=== PATIENT | female | born 1985 | race Caucasian/White ===

== ENCOUNTER 2017-09-17 07:01 | Inpatient (IN) | payer BC ==
[2017-09-17] MEDS ORDERED: Nalbuphine 20 MG/1 ML Amp IVPUSH PRN (07:44)
[2017-09-17] MEDS ORDERED: Lidocaine 1% 50 ML MDV INJECT ONE (07:44)
[2017-09-17] MEDS ORDERED: Sodium Chloride 0.9% 10 ML Syringe FLUSH PRN (07:44)
[2017-09-17] MEDS ORDERED: Ondansetron 4 MG/2 ML SDV IVPUSH PRN ×2 (07:44→11:21)
[2017-09-17] MEDS ORDERED: Oxytocin/Lactated Ringers 10 UNIT/1,000 ML BAG IV SCH ×2 (07:45)
--- NOTE | 2017-09-17 08:18 | PCM.SN ---
- Free Text/Narrative Note: Patient is a 32-yo female who presents for a planned induction of labor at 39 1/7 weeks on 09/17/17. She has been having contractions during the night for the past 2 nights. She lost her mucous plug on 09/14/17 and had bloody show. She denies any leakage of fluid. On her cervix was 3+, 90%, very soft , mid, and -2 station. She measured 37+. Baby is active. The patient desires to have the cord blood saved in the stem cell kit she brought. She has no specific concerns. She is comfortable. She has been induced with her previous children and delivered vaginally with each. She hopes not to receive Pitocin, because it gives her headaches. Medications: tablets Allergies: Ciprofloxacin- delirium Sulfa- rash Pristiq- other PMH: Patient is UTD on immunizations. She has anxiety and manages without medication. She had breast augmentation in 2013. She had cryotherapy in 2010 for abnormal Pap results. FH: Denies FH of bleeding/clotting disorders or congenital heart disease. ROS: General: Denies fever, chills, or overall malaise Heart: Denies chest pain, tachycardia, or heart racing Lungs: Denies shortness of breath or difficulty breathing Abdominal: Denies nausea, vomiting, diarrhea, or constipation Vitals: Height: 5'5'' Weight: 144 BP: 108/70 Pulse: 64 Temp: 97.5 RR: 18 Exam: Conjunctiva are non-injected. Neck is non-tender. No lymphadenopathy. RRR. Breathing is non-labored. Lungs clear to auscultation. Edema 1+ bilaterally. Baby presents head down. Cervix is 3+, 90%, very soft, mid-position and -2 station. Assessment: 1. Planned induction of labor at 39 1/7 weeks 2. GBS negative 3. O+, not a candidate for Rhogam Plan: 1. Manually ruptured membranes at 08:30 2. CBC to obtain Hgb and platelet count 3. Patient desires an epidural per pain management 4. Expect 5. Patient desires that the cord blood be saved. She has brought the stem cell kit with instructions for storage. RN has called lab to clarify instructions. 6. Patient plans to breast-feed
[2017-09-17] MEDS: Lactated Ringers 1,000 ML IV SCH ×3 (10:54→12:46)
[2017-09-17] MEDS ORDERED: ePHEDrine 50 MG/ML SDV IVPUSH PRN (11:21)
[2017-09-17] MEDS ORDERED: fentaNYL 100 MCG/2 ML SDV EPIDUR PRN (11:21)
[2017-09-17] MEDS ORDERED: diphenhydrAMINE 50 MG/ML SDV IVPUSH PRN (11:21)
[2017-09-17] MEDS ORDERED: fentaNYL 100 MCG/2 ML SDV ONE (11:24)
[2017-09-17] MEDS ORDERED: Bupivacaine/fentaNYL/NS 100 ML Bag EPIDUR SCH (11:30)
--- NOTE | 2017-09-17 11:57 | PCM.PREANE ---
Preanesthetic Assessment - Anesthesia/Transfusion/Family Hx Anesthesia History: Prior Anesthesia Without Reaction Family History of Anesthesia Reaction: No Transfusion History: No Prior Transfusion(s) Intubation History: Unknown - Review of Systems General: No Symptoms Pulmonary: No Symptoms Cardiovascular: No Symptoms Gastrointestinal: Other (Heart Burn) Neurological: No Symptoms Other: Reports: None - Physical Assessment Pulse: 68 Respiratory Rate: 18 Vital Signs: Last Vital Signs Temp 36.4 C 09/17/17 07:15 Pulse 68 09/17/17 09:03 Resp 18 09/17/17 07:15 BP 108/70 09/17/17 07:15 Pulse Ox Height: 1.65 m Weight: 64.047 kg ASA Class: 2 Mental Status: Alert & Oriented x3 Airway Class: Mallampati = 2 Dentition: Reports: Normal Dentition Thyro-Mental Finger Breadths: 3 Mouth Opening Finger Breadths: 3 ROM/Head Extension: Full Lungs: Clear to Auscultation, Normal Respiratory Effort Cardiovascular: Regular Rate, Regular Rhythm - Lab Values: Laboratory Last Values WBC 7.89 K/mm3 (3.98-10.04) 09/17/17 08:24 RBC 3.85 M/mm3 (3.98-5.22) L 09/17/17 08:24 Hgb 11.8 gm/L (11.2-15.7) 09/17/17 08:24 Hct 34.6 % (34.1-44.9) 09/17/17 08:24 MCV 89.9 fl (79.4-94.8) 09/17/17 08:24 MCH 30.6 pg (25.6-32.2) 09/17/17 08:24 MCHC 34.1 g/dl (32.2-35.5) 09/17/17 08:24 RDW Std Deviation 40.9 fL (36.4-46.3) 09/17/17 08:24 Plt Count 175 K/mm3 (182-369) L 09/17/17 08:24 MPV 10.2 fl (9.4-12.3) 09/17/17 08:24 - Allergies Allergies/Adverse Reactions: Allergies Allergy/AdvReac Type Severity Reaction Status Date / Time ciprofloxacin HCl Allergy Hallucinati Verified 09/17/17 07:41 [From Cipro] ons Sulfa (Sulfonamide Allergy unsure Verified 09/17/17 07:41 Antibiotics) - Acknowledgements Anesthesia Type Planned: Epidural Pt an Appropriate Candidate for the Planned Anesthesia: Yes Alternatives and Risks of Anesthesia Discussed w Pt/Guardian: Yes Pt/Guardian Understands and Agrees with Anesthesia Plan: Yes PreAnesthesia Questionnaire - Past Health History Medical/Surgical History: Denies Medical/Surgical History DIRECTOR TRADING History: Reports: , Other (See Below) Other OB/BYN History: velamentous insertion of cord with current Neurological History: Reports: Headaches, Chronic, Migraines Psychiatric History: Reports: Anxiety - Past Surgical History HEENT Surgical History: Reports: Adenoidectomy, Other (See Below) Other HEENT Surgeries/Procedures: Ear tubes as a child Female Surgical History: Reports: Breast Implant - SUBSTANCE USE Smoking Status *Q: Former Smoker Tobacco Use Within Last Twelve Months: Cigarettes Recreational Drug Use History: No - HOME MEDS Home Medications: Home Meds Pediatric Multivit Comb No.136 [Children Multivitamin] 1 each PO DAILY 09/17/17 [History] - CURRENT (IN HOUSE) MEDS Current Meds: Current Medications Diphenhydramine HCl (Benadryl) 25 mg IVPUSH Q6H PRN PRN Reason: Pruritis Ephedrine Sulfate (Ephedrine Sulfate) 5 mg IVPUSH ASDIRECTED PRN PRN Reason: Hypotension Fentanyl (Sublimaze) 100 mcg EPIDUR ONETIME PRN PRN Reason: Pain Fentanyl/Bupivacaine HCl (Fentanyl/Bupivacaine/Ns 2 Mcg-0.125% 100 Ml) 100 ml EPIDUR ASDIRECTED [facility] Lactated Ringer's (Ringers, Lactated) 1,000 mls @ 100 mls/hr IV ASDIRECTED [facility] Last Admin: 09/17/17 10:54 Dose: 999 mls/hr Oxytocin/Lactated Ringer's (Pitocin In Lr 10 Units/1,000 Ml) 10 unit in 1,000 mls @ 500 mls/hr IV .CONTINUOUS [facility] Oxytocin/Lactated Ringer's (Pitocin In Lr 10 Units/1,000 Ml) 10 unit in 1,000 mls @ 12 mls/hr IV TITRATE [facility]; 2 MUNITS/MIN PRN Reason: Protocol Nalbuphine HCl (Nubain) 10 mg IVPUSH Q2H PRN PRN Reason: Pain (moderate 4-6) Ondansetron HCl (Zofran) 4 mg IVPUSH Q4H PRN PRN Reason: Nausea/Vomiting Ondansetron HCl (Zofran) 4 mg IVPUSH ONETIME PRN PRN Reason: Nausea/Vomiting Sodium Chloride (Saline Flush) 10 ml FLUSH ASDIRECTED PRN PRN Reason: Keep Vein Open Discontinued Medications Fentanyl (Sublimaze) Confirm Administered Dose 100 mcg .ROUTE .[place] ONE Stop: 09/17/17 11:25 Lidocaine HCl (Xylocaine 1%) 20 ml INJECT ONETIME ONE Stop: 09/17/17 07:45
[2017-09-17] MEDS ORDERED: Ibuprofen 600 MG Tab PO PRN (15:03)
[2017-09-17] MEDS ORDERED: Docusate Sodium 100 MG Cap PO PRN (18:00)
[2017-09-17] MEDS ORDERED: Benzocaine/Menthol 20%-0.5% Spray 56 GM Canister TOP PRN (18:00)
[2017-09-17] MEDS ORDERED: Lanolin 100% Cream 7 GM Tube TOP PRN (18:00)
--- NOTE | 2017-09-17 18:07 | PCM.SN ---
- Free Text/Narrative Note: Graeme is a 32 year old 4 para 4004 white female who admitted for elective induction of labor. She is 39-0/7 weeks at the time induction. Induction done for distance from the hospital and multiparous status. Artificial rupture membranes was undertaken and with this patient proceeded with labor. She progressed to complete cervical dilation within approximately 6 hours. She underwent epidural for analgesia. She delivered a viable, crabtree, female infant with Apgars of 8 and 9, a length of 19 inches and a weight of 3170 g (6 pounds 15.8 ounces) at 1414 hrs. on 09/17/2017. The baby was placed on mom's abdomen. Cord was clamped. Cord blood for cord blood and stem cell banking was obtained per patient request with a kit that she had brought from home. A piece of umbilical cord was also collected. It was placed in the kit for the patient to send. Maternal blood and been drawn earlier in the day by lab. Placenta delivered at 1424 hrs. It appeared intact. It had a marginal insertion , 3 vessels and appeared complete. It delivered in a Agustin presentation. No stitches were needed as the perineum was intact and no lacerations had occurred. Epidural was used for laboring analgesia. Estimated blood loss was 100 mL. Patient condition good. Nursing is planned.
[2017-09-17] MEDS ORDERED: Bupivacaine 0.25% 10 ML SDV ONE (22:22)
[2017-09-18] MEDS: Ibuprofen 600 MG Tab PO PRN ×2 (00:30→08:04)
[2017-09-18] MEDS ORDERED: Witch Hazel Medicated Pads 100/Jar TOP PRN (08:03)
[2017-09-18 08:06] VITALS: BP 116/76
[2017-09-18] MEDS ORDERED: Prenatal Multivitamin with Calcium/Folic Acid/Iron Tab PO SCH (09:00)
--- NOTE | 2017-09-18 11:32 | PCM.DCSUM1 ---
Discharge Summary - Hospital Course Free Text/Narrative:: Heber is a 32 year old 4 para 4004 white female who was admitted for elective induction of labor on 09/17/2017. She was 39-0/7 weeks at the time of induction. Induction done for distance from the hospital and multiparous status. Artificial rupture membranes was undertaken and with this patient proceeded with labor. She progressed to complete cervical dilation within approximately 6 hours. She underwent epidural for analgesia. She delivered a viable, crabtree, female with Apgars of 8 and 9, a length of 19 inches and a weight of 3170 g (6 pounds 15.8 ounces) at 1414 hrs. on 09/17/2017. The baby was placed on mom's abdomen. Cord was clamped. Cord blood for cord blood and stem cell banking was obtained per patient request with a kit that she had brought from home. A piece of umbilical cord was also collected. It was placed in the kit for the patient to send. Maternal blood and been drawn earlier in the day by lab. Placenta delivered at 1424 hrs. It appeared intact. It had a marginal insertion , 3 vessels and appeared complete. It delivered in a Agustin presentation. No stitches were needed as the perineum was intact and no lacerations had occurred. Epidural was used for laboring analgesia. Estimated blood loss was 100 mL. patient is doing well. She has minimal lochia, was voiding well, ambulating without problems and is nursing without concerns. Follow-up labs showed a white count of 7.9. In [place] is 11.0 and platelets are 158. Patient is desiring to go home. Her vital signs are stable she's been afebrile. - Discharge Data Discharge Date: 09/18/17 Discharge Disposition: Home, Self-Care 01 Condition: Good - Patient Instructions Diet: Regular Diet as Tolerated (Nursing diet was increased calcium and calories ) Activity: As Tolerated (No intercourse or tampons until bleeding resolves) Driving: May Drive Today Showering/Bathing: May Shower (May take a bath) Notify Provider of: Fever, Increased Pain, Swelling and Redness, Nausea and/or Vomiting - Discharge Plan Home Medications: Home Meds Pediatric Multivit Comb No.136 [Children Multivitamin] 1 each PO DAILY 09/17/17 [History] Ibuprofen [IJD: Ibuprofen] 600 mg PO Q4H PRN tablet 09/18/17 [Rx] Referrals: Kobe Corral MD [Primary Care Provider] - [facility] - Discharge Summary/Plan Comment DC Time >30 min.: No Discharge Summary/Plan Comment: Discharge instructions: 1. Discharge home 2. Diet, activity and follow-up discussed with patient. Recommend nursing diet with increased calories and calcium. 3. Precautions given concern increased pain, bleeding, temperature, signs/ symptoms of DVT/PE. 4. Medications per home medication was printed, discussed with and given to the patient. 5. Return to clinic-Dr. Corral[facility] in 2 weeks. Diagnosis: Term -delivered Condition: Good - Patient Data Vitals - Most Recent: Last Vital Signs Temp 36.2 C 09/18/17 07:58 Pulse 61 09/18/17 07:58 Resp 16 09/18/17 07:58 BP 116/76 09/18/17 07:58 Pulse Ox 100 09/18/17 07:58 Weight - Most Recent: 64.047 kg I&O - Last 24 hours: Intake & Output 09/17/17 09/18/17 09/18/17 22:59 06:59 14:59 Intake Total 3420 180 Balance 3420 180 Lab Results - Last 24 hrs: Laboratory Results - last 24 hr 09/18/17 Range/Units 07:06 WBC 7.91 (3.98-10.04) K/mm3 RBC 3.61 L (3.98-5.22) M/mm3 Hgb 11.0 L (11.2-15.7) gm/L Hct 32.7 L (34.1-44.9) % MCV 90.6 (79.4-94.8) fl MCH 30.5 (25.6-32.2) pg MCHC 33.6 (32.2-35.5) g/dl RDW Std Deviation 40.9 (36.4-46.3) fL Plt Count 158 L (182-369) K/mm3 MPV 9.9 (9.4-12.3) fl Med Orders - Current: Current Medications Benzocaine/Menthol (Dermoplast Pain Relief [place]) 0 gm TOP ASDIRECTED PRN PRN Reason: Perineal Comfort Measure Last Admin: 09/18/17 08:02 Dose: 56 gm Docusate Sodium (Colace) 100 mg PO BID PRN PRN Reason: Constipation Emollient Ointment (Lansinoh Hpa) 0 gm TOP ASDIRECTED PRN PRN Reason: Sore Nipples Last Admin: 09/18/17 08:03 Dose: 7 gm Ibuprofen (Motrin) 600 mg PO Q4H PRN PRN Reason: Mild pain or fever Last Admin: 09/18/17 08:04 Dose: 600 mg Prenat Multivit/Parking Attendant/Iron/Folic Ac ( Plus Iron) 1 each PO DAILY [facility] Last Admin: 09/18/17 08:03 Dose: 1 each Witch Nandini (Tucks) 1 pad TOP ASDIRECTED PRN PRN Reason: Perineal Comfort Measure Discontinued Medications Bupivacaine HCl (Sensorcaine-Mpf 0.25%) 10 ml .ROUTE .STK-MED ONE Stop: 09/17/17 22:23 Diphenhydramine HCl (Benadryl) 25 mg IVPUSH Q6H PRN PRN Reason: Pruritis Ephedrine Sulfate (Ephedrine Sulfate) 5 mg IVPUSH ASDIRECTED PRN PRN Reason: Hypotension Fentanyl (Sublimaze) 100 mcg EPIDUR ONETIME PRN PRN Reason: Pain Last Admin: 09/17/17 11:58 Dose: 100 mcg Fentanyl (Sublimaze) Confirm Administered Dose 100 mcg .ROUTE .STK-MED ONE Stop: 09/17/17 11:25 Last Admin: 09/17/17 13:54 Dose: Not Given Fentanyl/Bupivacaine HCl (Fentanyl/Bupivacaine/Ns 2 Mcg-0.125% 100 Ml) 100 ml EPIDUR ASDIRECTED [facility] Last Admin: 09/17/17 11:59 Dose: 100 ml Lactated Ringer's (Ringers, Lactated) 1,000 mls @ 100 mls/hr IV ASDIRECTED [facility] Last Admin: 09/17/17 12:46 Dose: 125 mls/hr Oxytocin/Lactated Ringer's (Pitocin In Lr 10 Units/1,000 Ml) 10 unit in 1,000 mls @ 500 mls/hr IV .CONTINUOUS [facility] Last Admin: 09/17/17 14:16 Dose: 500 mls/hr Oxytocin/Lactated Ringer's (Pitocin In Lr 10 Units/1,000 Ml) 10 unit in 1,000 mls @ 12 mls/hr IV TITRATE [facility]; 2 MUNITS/MIN PRN Reason: Protocol Ibuprofen (Motrin) 600 mg PO Q4HR PRN PRN Reason: Pain Last Admin: 09/17/17 15:40 Dose: 600 mg Lidocaine HCl (Xylocaine 1%) 20 ml INJECT ONETIME ONE Stop: 09/17/17 07:45 Last Admin: 09/17/17 18:02 Dose: Not Given Nalbuphine HCl (Nubain) 10 mg IVPUSH Q2H PRN PRN Reason: Pain (moderate 4-6) Ondansetron HCl (Zofran) 4 mg IVPUSH Q4H PRN PRN Reason: Nausea/Vomiting Ondansetron HCl (Zofran) 4 mg IVPUSH ONETIME PRN PRN Reason: Nausea/Vomiting Sodium Chloride (Saline Flush) 10 ml FLUSH ASDIRECTED PRN PRN Reason: Keep Vein Open *Q Meaningful Use (DIS) - VTE *Q VTE Criteria *Q: - Stroke *Q Stroke Criteria *Q: - AMI *Q AMI Criteria *Q:
== END 2017-09-18 14:25 | disposition home or self-care (01) | DRG 560 ==
LOC: JD.OB 07:01 → OBSVTOIN 14:14 → JD.OB 14:14
PROVIDERS: ADMIT Obstetrics & Gynecology; ATTEND Obstetrics & Gynecology
PROC: 10E0XZZ Delivery of Products of Conception, External Approach (ICD-10-PCS; principal; 2017-09-17)
PROC: 10907ZC Drainage of Amniotic Fluid, Therapeutic from Products of Conception, Via Natural or Artificial Opening (ICD-10-PCS; 2017-09-17)
PROC: 00HU33Z Insertion of Infusion Device into Spinal Canal, Percutaneous Approach (ICD-10-PCS; 2017-09-17)
PROC: 3E0R3BZ Introduction of Anesthetic Agent into Spinal Canal, Percutaneous Approach (ICD-10-PCS; 2017-09-17)
DX: O80 Encounter for full-term uncomplicated delivery (principal); Z3A.39 39 weeks gestation of pregnancy; Z37.0 Single live birth; Z88.2 Allergy status to sulfonamides; Z88.1 Allergy status to other antibiotic agents; Z88.8 Allergy status to other drugs, medicaments and biological substances
CPT/HCPCS: 36415; 51701; 59409; 85027; A9270-GY; J2590; J3010; J7120